=== PATIENT | male | born 1965 | race Caucasian/White ===

== ENCOUNTER 2025-05-30 09:43 | Outpatient (CLI) | payer BC, SELFPAY ==
[2025-06-20 12:21] VITALS: BMI 27.3
--- NOTE | 2025-06-20 12:21 | WPDHOMESLEEP ---
Sleep Study - Home Unattended Date of Study: 05/30/25 Ordering Provider: Pasha Sherman DO Interpreting Provider: Lindsay Miller DO Home Sleep Study Type: Watch PAT Height: 1.73 m Weight: 81.647 kg Body Mass Index: 27.3 Neck Circumference (inches): 15 [place]: 6 Reason for Sleep Study The patient's Apple Watch showed episodes of bradycardia during sleep. Sleep History The patient is a 60-year-old male that had a sleep study ordered by his labor specialist for evaluation of sleep apnea. The patient denies awakening from sleep short of breath. He denies awakening at night with heartburn, belching or cough. He frequently snores and is frequently loud enough that others complain. He occasionally has trouble sleeping when he has a cold. He denies waking up gasping for air throughout the night. He denies having breathing problems at night observed by himself or others. He denies sweating excessively at night. He denies having heart palpitations or irregular heartbeats during the night. He rarely falls asleep during the day but never while driving. He denies cataplexy and hypnagogic/ hypnopompic hallucinations. He denies having trouble at school or work due to sleepiness. He rarely feels unable to move while waking up or falling asleep. He denies feeling afraid of going to sleep. He denies having nightmares. He denies remembering his dreams. He denies having thoughts racing through his mind. He denies feeling sad, depressed or anxious. He denies having muscular tension. He denies noticing parts of his body jerk. He denies kicking during the night. He denies having crawling and aching feelings in his legs and denies having leg pain during the night. He occasionally grinds his teeth during sleep and occasionally awakens with morning jaw pain. He denies being bothered by pain during the day and denies being awakened by pain during the night. He occasionally wakes up feeling stiff in the morning. He occasionally wakes up with sore or achy muscles. He occasionally wakes up with pain in the neck, spine and other joints. He goes to bed at 11:30 p.m. every night. It takes him 30 minutes to fall asleep. He wakes up once throughout the night to urinate and it can take him anywhere from 20 minutes up to 2 hours to fall back asleep. He wakes up at 4:00 a.m. every morning. He gets 6-1/2 hours of sleep per night. He will stay in bed for 30 minutes after waking up in the morning. He currently lives with his he denies consuming any caffeinated beverages within 2 hours of bedtime. He denies engaging in physical exercise before bedtime. He will watch television before falling asleep. He consumes 1 cup of caffeinated beverage per day. He denies tobacco, alcohol and recreational drug use. [facility] Surgical History Surgical History Hx of tonsillectomy Social History Social History Smoking status: Never smoker Alcohol intake: never Medications Home Medications ?Medication ?Instructions ?Recorded ?Confirmed ?Type albuterol sulfate 90 mcg/actuation 2 puff inhalation Q4H PRN 04/04/23 05/07/25 Rx aerosol inhaler shortness of breath or wheezing #8.5 grams flaxseed oil 1,000 mg capsule 1,000 mg PO DAILY 04/04/23 05/07/25 History atorvastatin 20 mg tablet 20 mg PO DAILY #90 tabs 08/12/24 05/07/25 Rx fluocinonide 0.05 % topical See Rx Instructions topical BID 03/13/25 05/07/25 Rx solution #20 mL Sleep Procedure The sleep study was completed using RafterT a technically adequate device with seven channels: peripheral arterial tone, actigraphy, body position, snore, respiratory movement, pulse oximetry, sleep staging, and heart rate. Prior to using the device, the patient received verbal and written instructions for its application and was provided with the help desk phone number for additional telephonic instruction with 24-hour availability of qualified personnel to answer questions. The study was scored using [facility] guidelines. Sleep Architecture The total recording time is 7 hrs, 24 min. The total sleep time is 6 hrs, 22 min. Sleep latency is 22 minutes. REM latency is 126 minutes. The patient had 8 episodes of waking. Sleep architecture shows 22.8% deep sleep, 52.4% light sleep, and (as % Total Sleep Time) showed NREM (Light 52.4%; Deep 22.8%), and a 24.9% stage REM. The patient spent 3.4% of total sleep time in the supine position. Sleep efficiency was 86.04. Respiratory Analysis The overall AHI (pAHI 4%:) is 2.2. The overall AHI (pAHI 3%:) is 6.3. The central AHI is 0.5. The AHI was 5.2 in NREM and 9.6 in REM sleep. The AHI was 35.9 in Supine and 5.3 in Non-supine sleep. Percent of Fernando Gibbs respirations is 0.0. Oximetry Data The oxygen desaturation index (ABIGAIL 4%:) is 0.7. The mean saturation is 94%, and the lowest saturation is 91%. Time spent with saturation < 88% is 0.0 minutes. Snoring Profile Snoring average intensity is 40 dB. The patient snored above 45 decibels for 7.9 minutes, 2.1% of sleep time. Cardiac Profile The average pulse rate is 45 beats per minutes. The lowest pulse rate is 36 bpm. The highest pulse rate reported is 93 bpm. Atrial fibrillation was not detected. Premature beats occur <0.1 per minute. Assessment and Plan Assessment and Plan (1) SAMARA (obstructive sleep apnea): Code(s): G47.33 - Obstructive sleep apnea (adult) (pediatric) Status: Acute Assessment and Plan: Per AASM guidelines (pAHI 3%), the patient had an overall AHI of 6.3 with desaturation down to 91%. This is consistent with mild sleep apnea. Due to the patient's bradycardia, he qualifies for treatment. I recommend that the patient be prescribed AutoPAP 5-15 cm H2O, CPAP mask/filters/tubing and heated humidity. A mandibular advancement device is also an acceptable treatment option. This should be used with all episodes of sleep.? Compliance should be reviewed within 31-90 days of starting therapy for usage greater than 4 hours per night greater than 70% of the nights. The patient should be asked about symptoms such as?excessive daytime sleepiness, quality of sleep, decreased nocturia, increased?mental functioning such as memory, mood, and concentration. Per CMS guidelines (pAHI 4%), the patient had an overall AHI of 2.2 with desaturation down to 91%. This is not consistent with sleep-disordered breathing. If the patient's insurance company only recognizes CMS guidelines, he does not qualify for treatment. I would then recommend that he have a split study with the use of a hypnotic to ensure we obtain enough sleep data. Data The data obtained during this sleep study is adequate for interpretation. Certification This sleep study has been reviewed by a board certified sleep medicine physician.
== END 2025-05-31 11:14 | disposition home or self-care (01) ==
PROVIDERS: PCP Family Medicine Adolescent Medicine; Visit Provider Internal Medicine Cardiovascular Disease
DX: G47.10 Hypersomnia, unspecified (principal); G47.33 Obstructive sleep apnea (adult) (pediatric)
CPT/HCPCS: 95800

== ENCOUNTER 2025-07-18 01:41 | Day surgery (SDC) | payer BC, SELFPAY ==
[2025-06-27 08:41] VITALS: BMI 27.3
[2025-07-18 06:19] VITALS: BP 140/76; PULSE 71; RESP 18; TEMP 36.2; O2SAT 98; BMI 27.9
[2025-07-18] MEDS: LACTATED RINGERS 1,000 ML 150 ML IV CONT (06:22)
--- NOTE | 2025-07-18 07:10 | WPDANESEPPF ---
Anes - Initial Pre Proc Eval Procedure: Operation Date: 07/18/25 07:30 Proposed Procedures p Screening Colonoscopy - Isra Mora MD Date/Time: 07/18/25 07:10 Surgeon: Isra Mora MD Pre Op Diagnosis: Screening Patient Data Age: 60 Gender: M Height: 1.73 m Weight: 83.4 kg Last Vital Signs Temp 36.2 C L 07/18/25 06:19 Pulse 71 07/18/25 06:19 Resp 18 07/18/25 06:19 BP 140/76 07/18/25 06:19 Pulse Ox 98 07/18/25 06:19 O2 Del Method Room Air 07/18/25 06:19 Allergies Allergy/AdvReac Type Severity Reaction Status Date / Time Penicillins Allergy Mild Hives Verified 07/18/25 06:16 acetaminophen (From Percocet) AdvReac Unknown Verified 07/18/25 06:16 oxycodone (From Percocet) AdvReac Unknown Verified 07/18/25 06:16 Home Medications ?Medication ?Instructions ?Recorded ?Confirmed ?Type albuterol sulfate 90 mcg/actuation 2 puff inhalation Q4H PRN 04/04/23 07/18/25 Rx aerosol inhaler shortness of breath or wheezing #8.5 grams flaxseed oil 1,000 mg capsule 1,000 mg PO DAILY 04/04/23 07/18/25 History atorvastatin 20 mg tablet 20 mg PO DAILY #90 tabs 08/12/24 07/18/25 Rx Patient hx anesthesia problems: none Family hx anesthesia problems: none Results Review: All pre-operative results and documents have been reviewed as part of the pre-operative evaluation. [facility] Surgical History Surgical History Hx of tonsillectomy Social History Social History Smoking status: Never smoker Alcohol intake: never Substance use: never Substance use type: does not use Living arrangements: with family Spiritual care concerns: No Anes - Eval Final PreProcedure Day of Procedure 07/18/25 07:10 Patient weight: overweight Heart: regular rate and rhythm Lungs: clear to auscultation Airway: Mallampati scale class II Neurological: alert and oriented Last oral intake: >/= 8 hours ASA classification: II Emergent: no Anesthetic plan: proceed Anesthesia type and monitoring: general GIVS and standard monitoring Results Review: All pre-operative results and documents have been reviewed as part of the pre-operative evaluation. Informed Consent: The patient's anesthetic plan and its attendant risks and benefits were discussed with the patient/family/POA. Questions were solicited and answers provided to the satisfaction of the patient/family/POA.
--- NOTE | 2025-07-18 07:21 | PM.IMHP2 ---
H&P: HPI History of Present Illness Date/Time: 07/18/25 07:21 Chief Complaint: Screening colonoscopy Narrative: This is the patient's 2nd screening colonoscopy. There are no GI symptoms and there is no family history of colorectal cancer. Review of Systems Review of Systems: All systems reviewed & are unremarkable except as noted in HPI and below PMFSH Surgical History Surgical History Hx of tonsillectomy Social History Social History Smoking status: Never smoker Alcohol intake: never Substance use: never Substance use type: does not use Living arrangements: with family Spiritual care concerns: No Meds Home Medications and Allergies Home Medications ?Medication ?Instructions ?Recorded ?Confirmed ?Type albuterol sulfate 90 mcg/actuation 2 puff inhalation Q4H PRN 04/04/23 07/18/25 Rx aerosol inhaler shortness of breath or wheezing #8.5 grams flaxseed oil 1,000 mg capsule 1,000 mg PO DAILY 04/04/23 07/18/25 History atorvastatin 20 mg tablet 20 mg PO DAILY #90 tabs 08/12/24 07/18/25 Rx Allergies Allergy/AdvReac Type Severity Reaction Status Date / Time Penicillins Allergy Mild Hives Verified 07/18/25 06:16 acetaminophen (From Percocet) AdvReac Unknown Verified 07/18/25 06:16 oxycodone (From Percocet) AdvReac Unknown Verified 07/18/25 06:16 Vital Signs Vital Signs - 24 hr 07/18/25 06:19 Temperature 97.1 F L Pulse Rate 71 Respiratory Rate 18 Blood Pressure 140/76 Pulse Oximetry 98 Oxygen Delivery Room Air Exam Const: General: cooperative and healthy appearing Resp: Effort & Inspection: normal respiratory effort and able to speak in complete sentences Auscultation: clear to auscultation bilaterally Cardio: Rate: regular rate Rhythm: regular rhythm GI: Inspection: normal to inspection GI Palp: No No hepatosplenomegaly present Auscultation: normal bowel sounds Rectal Exam: deferred Skin: General skin exam: normal color Psych: Appearance: grossly normal Mental Status: mental status grossly normal Assessment and Plan Assessment and plan (1) Encounter for screening colonoscopy: Code(s): Z12.11 - Encounter for screening for malignant neoplasm of colon Status: Acute Assessment and Plan: The patient is deemed a good candidate for the procedure. Consent signed. Will proceed. Prior Studies I have reviewed the following patient records and this information was taken into consideration when formulating the assessment and plan.: previous labs, previous ER visits, previous hospitalizations and previous clinic visits
[2025-07-18 07:43] VITALS: BP 104/66; PULSE 62; RESP 15; O2SAT 95
[2025-07-18 07:53] VITALS: BP 94/56; PULSE 55; RESP 14; O2SAT 97
[2025-07-18 08:03] VITALS: BP 117/56; PULSE 54; RESP 15; O2SAT 100
== END 2025-07-18 08:19 | disposition home or self-care (01) ==
PROVIDERS: PCP Family Medicine Adolescent Medicine; Referring Provider Family Medicine Adolescent Medicine; Visit Provider Internal Medicine Gastroenterology
PROC: 0DJD8ZZ Inspection of Lower Intestinal Tract, Via Natural or Artificial Opening Endoscopic (ICD-10-PCS; CPT 45378; principal; 2025-07-18 07:30)
DX: Z12.11 Encounter for screening for malignant neoplasm of colon (principal)
CPT/HCPCS: 45378; J2704; J7120